=== PATIENT | female | born 1960 | race Caucasian/White ===

== ENCOUNTER 2020-09-15 20:18 | Emergency (ER) | payer BC ==
[~2020-09-15] VITALS: Ht 162.6 cm; Wt 65.8 kg
--- NOTE | 2020-09-15 20:28 | NUR ---
Patient in waiting room deciding on course of her care.
--- NOTE | 2020-09-15 20:30 | NUR ---
Patient placed in room Dr Blackwell into eval patient. Shortly after being traiged and eval by RYLEY patient stated "I don't think I need to be here. I just want to see what the cost will be before I have any test done." Patient walked out of ER to speak to registeration regarding cost of visit.
--- NOTE | 2020-09-15 20:48 | NUR ---
No test or procedure done on patient such as EKG,PCXR and LABS. Patient refused
--- NOTE | 2020-09-15 20:51 | NUR ---
Patient does not wish to proceed with medical care recommended by Dr. Cole ). Patient given information related to possible complications, up to and including , which could occur as a result of leaving the hospital at this time. Patient verbalizes understanding of risks involved due to leaving against medical advice. Patient has signed AMA form.
--- NOTE | 2020-09-15 20:52 | NUR ---
Patient refused to sign AMA form.
[2020-09-16] MEDS ORDERED: THEA200C PO (11:00)
== END 2020-09-15 20:54 | disposition left against medical advice (07) ==
LOC: ER 20:27
DX: R53.83 Other fatigue (principal); F41.9 Anxiety disorder, unspecified; C91.41 Hairy cell leukemia, in remission; Z92.21 Personal history of antineoplastic chemotherapy
CPT/HCPCS: 93005; A4663

== ENCOUNTER 2020-09-16 09:14 | Emergency (ER) | payer BC ==
[~2020-09-16] VITALS: Ht 162.6 cm; Wt 65.8 kg
--- NOTE | 2020-09-16 09:48 | NUR ---
at bedside for assessment
[2020-09-16 10:16] LABS: NEUTROPHILS # (AUTO) 1.4 K/uL (1.8-8.9); WHITE BLOOD COUNT (AUTO) 5.2 K/uL (3.8-11.8)
[2020-09-16 10:22] LABS: POTASSIUM 4.9 mmol/L (3.5-5.1)
[2020-09-16 10:27] LABS: EOSINOPHILS % (AUTO) 0.9 % (0.0-7.0); HEMATOCRIT 35.4 % (31.2-41.9); LYMPHOCYTES # (AUTO) 0.3 K/uL (20.0-40.0); LYMPHOCYTES % (AUTO) 5.5 % (20.5-51.5); MEAN CORPUSCULAR HEMOGLOBIN 31.3 uug (24.7-32.8); MEAN CORPUSCULAR HGB CONC 34 g/dL (32.3-35.6); MEAN CORPUSCULAR VOLUME 92.5 fL (75.5-95.3); MONOCYTES # (AUTO) 3.5 K/uL (2.0-10.0); MONOCYTES % (AUTO) 67.7 % (0.0-11.0); NEUTROPHILS % (AUTO) 25.9 % (38.5-71.5); PLATELET COUNT (AUTO) 126 K/uL (179-408); RED BLOOD CELL COUNT(AUTO) 3.83 MIL/uL (3.63-4.92)
[2020-09-16] MEDS ORDERED: THEA200C PO (11:00)
--- NOTE | 2020-09-16 11:34 | NUR ---
Patient discharged to home in stable condition. Written and verbal after care instructions given. Patient verbalizes understanding of instructions. Stressed follow up or return to ER for worsening s/s.
[2020-09-16 11:48] VITALS: BP 118/67
[2020-09-16 15:54] LABS: EOSINOPHILS % (MANUAL) 1 % (0-8); LYMPHOCYTES % (MANUAL) 69 % (20-40); MONOCYTES % (MANUAL) 3 % (2-10); NEUTROPHILS % (MANUAL) 21 % (42-75)
[2020-09-16 15:56] LABS: BAND % (MANUAL) 2 % (0-10)
== END 2020-09-16 11:49 | disposition home or self-care (01) ==
LOC: ER 09:14
DX: F41.9 Anxiety disorder, unspecified (principal); I44.0 Atrioventricular block, first degree; D69.6 Thrombocytopenia, unspecified; Z88.2 Allergy status to sulfonamides; R00.1 Bradycardia, unspecified; Z85.6 Personal history of leukemia
CPT/HCPCS: 36415; 70030-TC; 71045; 84443; 85025; 93005; A4663